=== PATIENT | female | born 1970 | race Caucasian/White ===

== ENCOUNTER 2016-10-18 13:37 | Emergency (ER) | payer MEDICAID, OTHER ==
[~2016-10-18] VITALS: Ht 162.6 cm; Wt 64.0 kg
[~2016-10-18 13:37] MED LIST: METR0.752 TOPICAL
[2016-10-18 13:42] VITALS: BP 157/108; PULSE 75; RESP 16; TEMP 98.9; O2SAT 98
[2016-10-18 14:07] VITALS: RESP 16; O2SAT 98
[2016-10-18 14:16] LABS: BLOOD, URINE NEG (NEG); KETONE, URINE TRACE mg/dL (NEG); NITRITE,URINE NEG (NEG); PH, URINE 5.5 (5.0-8.5)
[2016-10-18] MEDS ORDERED: SODIUM CHLOR 0.9% 1000 ML INJ 1,000 ML IV SCH (14:25)
[2016-10-18 14:26] LABS: GLUCOSE,URINE 1000 OR GREATER mg/dL (NEG); METHOD OF COLLECTION CLEAN CATCH; URINE COLOR YELLOW (YELLW/STRAW)
[2016-10-18 14:27] LABS: BACTERIA, URINE FEW /hpf; COMMENT (UR) CULTURE INDICATED; CULTURE IF INDICATED CULTURE INDICATED; SQUAMOUS EPITHELIAL CELL URINE > 8 /hpf (0-5); WBC, URINE 0-2 /hpf (0-5)
[2016-10-18] MEDS ORDERED: PANTOPRAZOLE SODIUM 40 MG VIAL IVP ONE (14:30)
[2016-10-18] MEDS ORDERED: ONDANSETRON HCL 4 MG/2 ML VIAL IVP ONE (14:30)
[2016-10-18] MEDS ORDERED: MORPHINE SULFATE 4 MG/ML INJ IV PUSH ONE (14:30)
--- NOTE | 2016-10-18 14:30 | PD ---
HPI Chief Complaint: Abdominal Pain Time Seen by Provider: 14:15 Travel History International Travel<30 days: No Contact w/Intl Traveler<30days: No Traveled to known affect area: No History of Present Illness HPI 46-year-old female complains of abdominal pain, nausea vomiting diarrhea. Patient states the pain started 3 days ago. Patient states the pain intermittent cramping pain and sharp pain diffuse over the abdomen, more severe on the right side abdomen. Patient states the pain started on the right upper quadrant of the abdomen and extending to the rest of the abdomen since then. Patient states that she has intermittent nausea vomiting diarrhea. Patient denies any dysuria or frequency. Patient denies any vaginal discharge or bleeding. Patient denies any fever chills. Patient denies any chance of being . On a scale of 1-10 the pain is an 8. PFSH Past Medical History Arthritis: No Asthma: No Autoimmune Disease: No Anxiety: Yes Depression: Yes Cancer: No Cardiovascular Problems: No High Cholesterol: No COPD: No Cerebrovascular Accident: No Diabetes: No Diminished Hearing: No Endocrine: No GERD: No Genitourinary: No Headaches: Yes (Hx of migraines) Immune Disorder: No Musculoskeletal: Yes (shoulder pain and multiple surgeries) Neurologic: No Psychiatric: Yes (Hx of treatment for depression and anxiety) Reproductive: No Respiratory: No Immunizations Current: Yes Migraines: No Seizures: No Sleep Apnea: No Thyroid Disease: No Ulcer: No Influenza Vaccination: No ?: Not LMP: 1 week ago : 3 Para: 1 : 1 Past Surgical History Abdominal Surgery: No Cardiac Surgery: No Ear Surgery: No Endocrine Surgery: No Eye Surgery: No Genitourinary Surgery: No Gynecologic Surgery: No Oral Surgery: No Thoracic Surgery: No Social History Alcohol Use: Yes (3x weekly) Tobacco Use: Yes (socially) Substance Use: Yes Allergies-Medications (Allergen,Severity, Reaction): Coded Allergies: Contrast Media (Verified Allergy, Severe, Hives, 10/18/16) Penicillin (Verified Allergy, Severe, Anaphylaxis, 10/18/16) Reported Meds & Prescriptions Reported Meds & Active Scripts Active No Active Prescriptions or Reported Medications Review of Systems General / Constitutional: No: Fever Eyes: No: Visual changes HENT: No: Headaches Cardiovascular: No: Chest Pain or Discomfort Respiratory: No: Shortness of Breath Gastrointestinal: Positive: Nausea, Vomiting, Diarrhea, Abdominal Pain Genitourinary: No: Dysuria Musculoskeletal: No: Pain Skin: No Rash Neurologic: No: Weakness Psychiatric: No: Depression Endocrine: No: Polydipsia Hematologic/Lymphatic: No: Easy Bruising Physical Exam Narrative GENERAL: Well-nourished, well-developed patient. SKIN: Focused skin assessment warm/dry. HEAD: Normocephalic. EYES: No scleral icterus. No injection or drainage. NECK: Supple, trachea midline. No JVD or lymphadenopathy. CARDIOVASCULAR: Regular rate and rhythm without murmurs, gallops, or rubs. RESPIRATORY: Breath sounds equal bilaterally. No accessory muscle use. GASTROINTESTINAL: Abdomen soft, nondistended. Patient has moderate tenderness on palpation of the right upper quadrant of the abdomen and mild tenderness diffuse over the abdomen. No rebound tenderness. No mass. MUSCULOSKELETAL: No cyanosis, or edema. BACK: Nontender without obvious deformity. No CVA tenderness. Data Data Last Documented VS Vital Signs Date Time Temp Pulse Resp B/P Pulse Ox O2 Delivery O2 Flow Rate FiO2 10/18/16 14:57 16 10/18/16 14:07 98 Room Air 10/18/16 13:42 98.9 75 157/108 Orders Urinalysis - C+S If Indicated (10/18/16 13:53) Ed Urine Pregnancytest Poc (10/18/16 13:53) Complete Blood Count With Diff (10/18/16 14:25) Comprehensive Metabolic Panel (10/18/16 14:25) Lipase (10/18/16 14:25) Prothrombin Time / Inr (Pt) (10/18/16 14:25) Act Partial Throm Time (Ptt) (10/18/16 14:25) Iv Access Insert/Monitor (10/18/16 14:25) Ecg Monitoring (10/18/16 14:25) Oximetry (10/18/16 14:25) Morphine Inj (Morphine Inj) (10/18/16 14:30) Ondansetron Inj (Zofran Inj) (10/18/16 14:30) Pantoprazole Inj (Protonix Inj) (10/18/16 14:30) Sodium Chlor 0.9% 1000 Ml Inj (Ns 1000 M (10/18/16 14:25) Urine Culture (10/18/16 14:00) Ct Abd/Pel W/O Iv Contrast (10/18/16 14:25) Labs Laboratory Tests Test 10/18/16 10/18/16 14:00 14:07 Urine Collection Type CLEAN CATCH Urine Color YELLOW Urine Turbidity CLEAR Urine pH 5.5 Urine Specific [place] 1.022 Urine Protein NEG mg/dL Urine Glucose (UA) 1000 OR GREATER mg/dL Urine Ketones TRACE mg/dL Urine Occult Blood NEG Urine Nitrite NEG Urine Bilirubin NEG Urine Leukocyte Esterase NEG Urine WBC 0-2 /hpf Urine Squamous Epithelial > 8 /hpf Cells Urine Bacteria FEW /hpf Microscopic Urinalysis Comment CULTURE INDICATED Urine Collection Time 14:00 White Blood Count 7.9 TH/MM3 Red Blood Count 4.41 MIL/MM3 Hemoglobin 14.7 GM/DL Hematocrit 44.0 % Mean Corpuscular Volume 99.7 FL Mean Corpuscular Hemoglobin 33.3 PG Mean Corpuscular Hemoglobin 33.4 % Concent Red Cell Distribution Width 12.4 % Platelet Count 315 TH/MM3 Mean Platelet Volume 7.8 FL Neutrophils (%) (Auto) 72.3 % Lymphocytes (%) (Auto) 20.0 % Monocytes (%) (Auto) 5.8 % Eosinophils (%) (Auto) 1.3 % Basophils (%) (Auto) 0.6 % Neutrophils # (Auto) 5.7 TH/MM3 Lymphocytes # (Auto) 1.6 TH/MM3 Monocytes # (Auto) 0.5 TH/MM3 Eosinophils # (Auto) 0.1 TH/MM3 Basophils # (Auto) 0.0 TH/MM3 CBC Comment DIFF FINAL Differential Comment Prothrombin Time 9.8 SEC Prothromb Time International 0.9 RATIO Ratio Activated Partial 28.5 SEC Thromboplast Time Sodium Level 141 MEQ/L Potassium Level 3.6 MEQ/L Chloride Level 104 MEQ/L Carbon Dioxide Level 31.2 MEQ/L Anion Gap 6 MEQ/L Blood Urea Nitrogen 12 MG/DL Creatinine 0.95 MG/DL Estimat Glomerular Filtration 64 ML/MIN Rate Random Glucose 97 MG/DL Calcium Level 9.4 MG/DL Total Bilirubin 1.2 MG/DL Aspartate Amino Transf 23 U/L (AST/SGOT) Alanine Aminotransferase 33 U/L (ALT/SGPT) Alkaline Phosphatase 77 U/L Total Protein 6.8 GM/DL Albumin 3.7 GM/DL Lipase 137 U/L [facility] Medical Decision Making Medical Screen Exam Complete: Yes Emergency Medical Condition: Yes Interpretation(s) 1527 PM. CBC within normal limit. CMP within normal limit. UA positive for glucose. [address] scan abdomen pelvis negative acute pathology. Nonobstructive renal calculi. Differential Diagnosis Differential diagnosis including gastritis, PUD, pancreatitis, cholecystitis, colitis, UTI, pyelonephritis, nephrolithiasis. Narrative Course 46-year-old female with abdominal pain, especially right upper quadrant abdominal pain. Normal saline solution 1 25 cc an hour. Morphine 2 mg IV. Zofran 4 g IV. Protonix 40 mg IV. Diagnosis Primary Impression: Abdominal pain Qualified Code: R10.9 - Abdominal pain, unspecified location Additional Impression: Gastroenteritis Patient Instructions: General Instructions Additional Instructions: Take medication as needed. Follow-up with personal physician. Return if persistent problem or worse. Med/Other Pt SpecificInfo: Prescription(s) given Scripts Diphenoxylate-Atropine (Lomotil)2.5-0.025 Mg Tab1 Tab PO Q6H PRN (DIARRHEA) #10 TAB Ref 0 Prov:Cesar Matson MD 10/18/16 Dicyclomine (Bentyl)10 Mg Cap10 Mg PO TID PRN (PAIN SCALE 1 TO 10) #15 CAP Ref 0 Prov:Cesar Matson MD 10/18/16 Ondansetron Odt (Zofran Odt)4 Mg Tab4 Mg SL Q6HR PRN (Nausea/Vomiting) #10 TAB Prov:Cesar Matson MD 10/18/16 Disposition: 01 DISCHARGE HOME Condition: Stable Cesar Matson MD Oct 18, 2016 14:30
[2016-10-18 14:33] VITALS: BP 171/96; PULSE 65; RESP 16; O2SAT 99
[2016-10-18 14:49] LABS: AUTOMATED NEUTROPHIL # 5.7 TH/MM3 (1.8-7.7); BASOPHIL % 0.6 % (0.0-2.0); EOSINOPHIL # 0.1 TH/MM3 (0-0.4); EOSINOPHIL % 1.3 % (0.0-4.0); HEMO FLAGS DIFF FINAL; LYMPHOCYTE # 1.6 TH/MM3 (1.0-4.8); MEAN CELL VOLUME 99.7 FL (80.0-100.0); MEAN CORPUSCULAR HEMOGLOBIN 33.3 PG (27.0-34.0); MEAN CORPUSCULAR HGB CONC 33.4 % (32.0-36.0); MONO % 5.8 % (0.0-8.0); NEUT % 72.3 % (16.0-70.0); PLATELET COUNT 315 TH/MM3 (150-450); RED BLOOD COUNT 4.41 MIL/MM3 (4.00-5.30); RED CELL DISTRIBUTION WIDTH 12.4 % (11.6-17.2); WHITE BLOOD COUNT 7.9 TH/MM3 (4.0-11.0)
[2016-10-18 15:03] LABS: CHLORIDE 104 MEQ/L (98-107); POTASSIUM 3.6 MEQ/L (3.5-5.1); SODIUM (NA) 141 MEQ/L (136-145)
[2016-10-18 15:07] LABS: ANION GAP 6 MEQ/L (5-15); BICARBONATE 31.2 MEQ/L (21.0-32.0)
[2016-10-18 15:08] LABS: BLOOD UREA NITROGEN 12 MG/DL (7-18)
[2016-10-18 15:09] LABS: APTT (PATIENT) 28.5 SEC (24.3-30.1); INTERNATIONAL NORMALIZED RATIO 0.9 RATIO; PROTHROMBIN TIME - PATIENT 9.8 SEC (9.8-11.6)
[2016-10-18 15:10] LABS: ALT (GPT) 33 U/L (10-53); AST (GOT) 23 U/L (15-37); GLOMERULAR FILTRATION RATE 64 ML/MIN (>89)
[2016-10-18 15:12] LABS: TOTAL BILIRUBIN ADULT 1.2 MG/DL (0.2-1.0)
[2016-10-18 15:13] LABS: ALKALINE PHOSPHATASE 77 U/L (45-117)
--- NOTE | 2016-10-18 15:38 | RADHPO ---
EXAM DATE/TIME: 10/18/2016 15:10 [facility] COMPARISON: No previous studies available for comparison. INDICATIONS : Diffuse abdominal pain for three days. ORAL CONTRAST: No oral contrast ingested. RADIATION DOSE: 6.94 CTDIvol (mGy) MEDICAL HISTORY : None SURGICAL HISTORY : Orthopedic surgery. ENCOUNTER: Initial ACUITY: 3 days PAIN SCALE: 4/10 LOCATION: Bilateral abdomen TECHNIQUE: Volumetric scanning of the abdomen and pelvis was performed. Using automated exposure control and ad justment of the mA and/or kV according to patient size, radiation dose was kept as low as reasonably achievable to obtain optimal diagnostic quality images. FINDINGS: LOWER LUNGS: The visualized lower lungs are clear. LIVER: Homogeneous density without lesion. There is no dilation of the biliary tree. No calcified gallston es. SPLEEN: Normal size without lesion. PANCREAS: Within normal limits. KIDNEYS: Normal in size and shape. There is no mass or hydronephrosis. Tiny 2 mm calcified nonobstructing steve ateral renal calculi are noted. ADRENAL GLANDS: Within normal limits. VASCULAR: There is no aortic aneurysm. BOWEL/MESENTERY: Few uncomplicated sigmoid diverticula are noted. ABDOMINAL WALL: Within normal limits. RETROPERITONEUM: There is no lymphadenopathy. BLADDER: No wall thickening or mass. REPRODUCTIVE: Within normal limits. Minimal free fluid is noted within the cul-de-sac. INGUINAL: There is no lymphadenopathy or hernia. MUSCULOSKELETAL: Within normal limits for patient age. CONCLUSION: 1. Tiny 2 mm calcified nonobstructing bilateral renal calculi. 2. Minimal free fluid within the cul-de-sac. 3. Few uncomplicated sigmoid diverticula. Cleve Henderson MD on October 18, 2016 at 15:33 Board Certified Radiologist. This report was verified electronically.
[2016-10-18 15:45] VITALS: BP 174/99; PULSE 66; RESP 16; O2SAT 99
[2016-10-18] MEDS ORDERED: LOMO2.5T PO (15:48)
[2016-10-18] MEDS ORDERED: DICY10 PO (15:48)
[2016-10-18] MEDS ORDERED: ZOFR4TAB3 SL (15:48)
== END 2016-10-18 16:20 | disposition home or self-care (01) ==
LOC: PHED 13:37
DX: K52.9 Noninfective gastroenteritis and colitis, unspecified (principal); R82.71 Bacteriuria
CPT/HCPCS: 74176; 80053; 81001; 83690; 84703; 85025; 85610; 85730; 87086; 96361; 96374; 96375; 99285; C9113; J2270; J2405; J7030